=== PATIENT | female | born 1990 | race Caucasian/White ===

== ENCOUNTER 2018-03-19 16:31 | Emergency (ER) | payer SELFPAY ==
[2018-03-19] MEDS ORDERED: SODIUM CHLORIDE 0.9% (FLUSH) 10 ML SYG IV PRN (16:37)
[2018-03-19] MEDS ORDERED: SODIUM CHLORIDE 0.9% 1000ML 1,000 ML IVS PRN (16:37)
[2018-03-19] MEDS ORDERED: MORPHINE SULFATE INJ 10 MG/ML VIAL ONE (16:59)
[2018-03-19] MEDS ORDERED: MORPHINE SULFATE INJ 10 MG/ML VIAL IV ONE ×2 (16:59→19:49)
[2018-03-19] MEDS ORDERED: KETOROLAC TROMETHAMINE INJ 30 MG/ML VIAL ONE (17:26)
[2018-03-19] MEDS ORDERED: KETOROLAC TROMETHAMINE INJ 30 MG/ML VIAL IV ONE (17:29)
[2018-03-19] MEDS ORDERED: ALPRAZolam 0.25 MG TAB PO ONE (17:32)
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
[2018-03-19] MEDS ORDERED: LIDOCAINE 1% 10 ML VIAL INJ ONE (17:53)
[2018-03-19] MEDS ORDERED: CHLORHEXIDINE GLUCONATE 4 % 15 ML UD TOP ONE ×2 (18:04→18:17)
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
[2018-03-19 20:26] VITALS: BP 109/56; TEMP 99.9; O2SAT 99
== END 2018-03-19 20:25 | disposition short-term general hospital (02) ==
LOC: ER 16:31 → EDBD 16:31 → ER 20:25
DX: S01.01XA Laceration without foreign body of scalp, initial encounter (principal); S80.851A Superficial foreign body, right lower leg, initial encounter; S90.454A Superficial foreign body, right lesser toe(s), initial encounter; S32.592A Other specified fracture of left pubis, initial encounter for closed fracture; V91.82XA Other injury due to other accident to fishing boat, initial encounter
CPT/HCPCS: 36415; 71250; 72125; 73590; 73620; 74176; 80053; 80320; 82150; 84703; 85025; 85610; 85730; 93005; J1885; J2270; J7030